=== PATIENT | female | born 1945 | race Caucasian/White ===

== ENCOUNTER → 2021-01-13 10:09 | Outpatient (CLI) | payer MEDICARE, BC ==
[2016-01-05 13:58] VITALS: BMI 25.5
[~2021-01-13 10:09] MED LIST: BAYER CHEWABLE81 MG PO; DYAZIDE 37.5/251 CAP PO; MULTI-DAY VITAM1 TAB PO; NORVASC5 MG PO; SYNTHROID25 MCG PO; VITAMIN D31000 UNIT PO; ZOCOR20 MG PO
== END | disposition home or self-care (01) ==
LOC: D.HCCECHO 10:09
PROVIDERS: ATTEND Internal Medicine Cardiovascular Disease
DX: I10 Essential (primary) hypertension (principal)